=== PATIENT | male | born 1945 | race Caucasian/White ===

== ENCOUNTER 2017-01-14 13:47 | Outpatient (CLI) | payer MEDICARE, OTHER ==
[~2017-01-14] VITALS: Ht 172.7 cm; Wt 83.9 kg
[2017-01-14] MEDS ORDERED: CYCL10TA9 PO (13:57)
[2017-01-14] MEDS ORDERED: TRAM50TA2 PO (13:57)
[2017-01-14] MEDS ORDERED: TURM500C7 PO (13:57)
[2017-01-14] MEDS ORDERED: METO100T2 PO (13:57)
[2017-01-14 14:00] VITALS: BP 135/92
== END 2017-01-14 14:11 | disposition home or self-care (01) ==
LOC: PREOP 13:47
PROVIDERS: ATTEND Surgery
DX: Z01.818 Encounter for other preprocedural examination (principal); D17.9 Benign lipomatous neoplasm, unspecified
CPT/HCPCS: 87081

== ENCOUNTER 2017-01-21 10:10 | Day surgery (SDC) | payer MEDICARE, OTHER ==
[~2017-01-21] VITALS: Ht 172.7 cm; Wt 83.9 kg
[~2017-01-21 10:10] MED LIST: CYCL10TA9 PO; METO100T2 PO; TRAM50TA2 PO; TURM500C7 PO
[2017-01-21] MEDS ORDERED: ceFAZolin 2 GM/50 ML NS 50 ML IV ONE (10:31)
[2017-01-21 10:35] VITALS: BP 137/94
[2017-01-21] MEDS: LACTATED RINGERS 1,000 ML IV PRN ×2 (10:40→12:41)
[2017-01-21] MEDS ORDERED: ceFAZolin 2 GM/NS 50 ML IV ONE (11:00)
[2017-01-21] MEDS ORDERED: LIDOCAINE PF 2% 10 ML (XYLOCAINE) AMP ONE (11:07)
[2017-01-21] MEDS ORDERED: MIDAZOLAM 2 MG/2 ML (VERSED) VIAL ONE (11:07)
[2017-01-21] MEDS ORDERED: LACTATED RINGERS 1,000 ML IV ONE ×2 (11:07→13:17)
[2017-01-21] MEDS ORDERED: fentaNYL INJECTION 100 MCG/2 ML AMP ONE (11:07)
[2017-01-21] MEDS ORDERED: DEXAMETHASONE PF 10 MG/ML (DECADRON) VIAL ONE (11:07)
[2017-01-21] MEDS ORDERED: SEVOFLURANE (ULTANE) 15 ML INHAL SOLN ONE ×2 (11:07→13:17)
[2017-01-21] MEDS ORDERED: ONDANSETRON 4 MG/2 ML (SDV) Z0FRAN ONE (11:07)
[2017-01-21] MEDS ORDERED: proPOfol 200 MG/20 ML (DIPRIVAN) VIAL IV ONE (11:07)
[2017-01-21] MEDS ORDERED: BUP/EPI 0.25% 1:200,000 (MARCAINE) 30 ML VIAL ONE (11:33)
--- NOTE | 2017-01-21 11:58 | Progress Note-Pre Operative ---
Pre-Operative Progress Note H&P Reviewed The H&P was reviewed, patient examined and no changes noted. Date H&P Reviewed: Jan 21, 2017 Time H&P Reviewed: 11:58 Pre-Operative Diagnosis: Lipoma Laft DAVID Petersen MD Jan 21, 2017 11:58 am
--- NOTE | 2017-01-21 13:06 | Progress Note-Post Operative ---
Post-Operative Progess Note Surgeon (s)/Interlocking Machine Operator (s) Surgeon DAVID GAVIN MD Interlocking Machine Operator: Marilyn Neal Pre-Operative Diagnosis Lipoma Laft elbow Post-Operative Diagnosis Same Post-Op Procedure Note Date of Procedure: Jan 21, 2017 Name of Procedure Performed: Excision Description of the Procedure: See operative report Findings of the Procedure See operative report Anesthesia Type Gen. Estimated blood loss (mL): Minimal Specimen(s) collected/removed Lipoma DAVID GAVIN MD Jan 21, 2017 1:06 pm
[2017-01-21] MEDS ORDERED: HYDR-3812 PO (13:09)
--- NOTE | 2017-01-21 13:10 | Discharge Inst-Simple/Standard ---
Discharge Inst-Standard Discharge Medications New, Converted or Re-Newed RX: RX on Chart Patient Instructions/Follow Up Plan of Care/Instructions/FU: Left upper extremity to be elevated. Kerlix bandage off in 48 hours. Steri-Strips to stay. Follow-up when necessary Activity as Tolerated: Yes Discharge Diet: No Restrictions DAVID GAVIN MD Jan 21, 2017 1:10 pm
--- NOTE | 2017-01-21 13:31 | OPERATIVE REPORT ---
DATE OF SERVICE: 01/21/2017 PREOPERATIVE DIAGNOSIS: Painful lipoma (8 x 4 cm left medial elbow). POSTOPERATIVE DIAGNOSIS: Painful lipoma (8 x 4 cm left medial elbow). OPERATION: Excision. SURGEON: Dr. Gavin. ANESTHESIA: General anesthesia. BLOOD LOSS: Minimal. FLUIDS: One liter of crystalloid. TYPE OF WOUND: Type 1 (clean wound). 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 He presented with a painful lipoma, about 8 x 4 cm in size, involving the medial aspect of his left elbow. In addition, he also exhibited superficially thrombosed varicosities along the anterior aspect of the lipoma. He was offered excision to relieve his symptoms. Informed consent was obtained after reviewing the operative details and complications of postoperative hematoma, wound infection and recurrence of the lipoma. DESCRIPTION OF PROCEDURE He was placed supine on the operative table and general anesthesia induced. A gram of Ancef was administered intravenously as prophylaxis against wound infection. The left upper extremity was prepared and draped in the usual sterile manner. Pre-emptive analgesia was established using 0.25% Marcaine with epinephrine. A vertical incision about 8 cm long was made and the lipoma excised intact. Multiple thrombosed superficial varicosities overlying the lipoma were controlled using Ligaclips and 3-0 Vicryl transfixation sutures. Hemostasis was optimized using Ligaclips and minimal use of cautery. The area was then irrigated with saline and the incision closed using 3-0 Vicryl for the subcutaneous tissue and 4-0 Vicryl for skin, in a subcuticular fashion. He tolerated the procedure well, was extubated in the operating room and taken to the recovery room in stable condition. [place], sponges and instruments were correct at the end of the operation. Job ID: [id number] DocumentID: [id number] Dictated Date: 01/21/2017 13:02:49 Corn Press Operator Date: 01/21/2017 13:31:07 Dictated By: DAVID GAVIN MD [facility]
[2017-01-21 14:05] VITALS: BP 137/94
[2017-01-21] MEDS ORDERED: HYDROcodone/APAP 5 MG/325 MG (LORTAB) TAB ONE ×2 (14:09→14:32)
[2017-01-21] MEDS ORDERED: BUP/EPI 0.25% 1:200,000 (MARCAINE) 30 ML VIAL INJ ONE (14:15)
[2017-01-21 14:35] VITALS: BP 116/78
[2017-01-21] MEDS ORDERED: HYDROcodone/APAP 5 MG/325 MG (LORTAB) TAB PO ONE ×2 (14:45→15:30)
[2017-01-21 15:05] VITALS: BP 118/81
== END 2017-01-21 15:05 | disposition home or self-care (01) ==
LOC: SDC 10:10
PROVIDERS: ATTEND Surgery
DX: D17.22 Benign lipomatous neoplasm of skin and subcutaneous tissue of left arm (principal); I86.8 Varicose veins of other specified sites
CPT/HCPCS: 88304